=== PATIENT | female | born 1970 | race Caucasian/White ===

== ENCOUNTER 2019-10-05 02:15 | Emergency (ER) | payer OTHER ==
[~2019-10-05] VITALS: Ht 157.5 cm; Wt 54.4 kg
[2019-10-05 03:10] VITALS: BP 126/74
[2019-10-05 03:46] LABS: INFLUENZA A PATIENT NEGATIVE (NEGATIVE); INFLUENZA B PATIENT NEGATIVE (NEGATIVE)
[2019-10-05] MEDS ORDERED: AMOX500C PO (04:01)
--- NOTE | 2019-10-05 04:02 | PHYS DOC ---
Past Medical History Past Medical History: No Pertinent History Past Surgical History: No Surgical History Alcohol Use: Occasionally Drug Use: None Adult General Chief Complaint Chief Complaint: MULTIPLE COMPLAINTS HPI HPI Patient is a 49-year-old female who presents with complaint of sore throat, dry cough, fever and chills for the last few days. Patient states that her temperature has been a cyanosis 104 at home. She states that temperature has been managed with ibuprofen and Tylenol. She states that cough has not been productive of sputum. She indicates that nothing is improving her symptoms.[] Review of Systems Review of Systems Constitutional: Positive fever and chills [] HENT: Complains of congestion and sore throat [] Respiratory: Complains of cough and shortness of breath [] Cardiovascular: No additional information not addressed in HPI [] GI: Denies abdominal pain, nausea, vomiting or diarrhea [] Integument: Denies rash or skin lesions [] Neurologic: Denies headache, focal weakness or sensory changes [] All other systems were reviewed and found to be within normal limits, except as documented in this note. Allergies Allergies Allergies Coded Allergies Type Severity Reaction Last Updated Verified No Known Drug Allergies 03/02/15 No Physical Exam Physical Exam Constitutional: Well developed, well nourished, no acute distress, non-toxic appearance. [] HENT: Normocephalic, atraumatic, bilateral external ears normal, with pharyngeal erythema. [] Neck: Normal range of motion, no tenderness, supple, no stridor. [] Cardiovascular: Regular rate and rhythm[] Lungs & Thorax: Bilateral breath sounds clear to auscultation [] Abdomen: Bowel sounds normal, soft, no tenderness. [] Skin: Warm, dry, no erythema, no rash. [] Extremities: No tenderness, no cyanosis, no clubbing, ROM intact, no edema. [] Neurologic: Alert and oriented X 3, no focal deficits noted. [] Current Patient Data Vital Signs Vital Signs Date Time Temp Pulse Resp B/P (MAP) Pulse Ox O2 Delivery O2 Flow Rate FiO2 10/05/19 03:10 98.2 66 12 126/74 (91) 98 Room Air 98.2 Lab Values Laboratory Tests Test 10/05/19 03:20 Influenza Type A Antigen Negative (NEGATIVE) Influenza Type B Antigen Negative (NEGATIVE) EKG EKG [] Radiology/Procedures Radiology/Procedures [] Course & Med Decision Making Course & Med Decision Making Pertinent Labs and Imaging studies reviewed. (See chart for details) [] Dragon Disclaimer Dragon Disclaimer This electronic medical record was generated, in whole or in part, using a voice recognition dictation system. Departure Departure Impression: Primary Impression: Pharyngitis Disposition: HOME, SELF-CARE Condition: STABLE Referrals: UNKNOWN PCP NAME (PCP) Patient Instructions: Viral and Bacterial Pharyngitis Scripts Amoxicillin (AMOXICILLIN) 500 Mg Capsule 1 CAP PO TID, #30 CAP Prov: RUSTAM STRICKLAND Jr. DO 10/05/19 Problem Qualifiers Primary Impression: Pharyngitis Pharyngitis/tonsillitis etiology: unspecified etiology Qualified Codes: J02.9 - Acute pharyngitis, unspecified RUSTAM STRICKLAND Jr. DO Oct 05, 2019 04:02
== END 2019-10-05 04:30 | disposition home or self-care (01) ==
LOC: ER 02:15
DX: J02.9 Acute pharyngitis, unspecified (principal)
CPT/HCPCS: 87070; 87804; 87880; 99284

== ENCOUNTER → 2020-04-22 | Outpatient (CLI) | payer OTHER ==
[~2020-04-22] MED LIST: AMOX500C PO
--- NOTE | 2020-04-23 07:52 | CARD ---
MR#: [id number] Date of Study: 04/22/2020 Ordering Physician: DAREN PRUETT, Referring Physician: DAREN PRUETT, Tech: Lisbeth Issa APPROVED REPORT EXAM: Two-dimensional and M-mode echocardiogram with Doppler and color Doppler. Other Information Quality : GoodHR: 57bpm INDICATION Murmur 2D DIMENSIONS RVDd3.6 (2.9-3.5cm)Left Atrium(2D)3.5 (1.6-4.0cm) IVSd0.9 (0.7-1.1cm)Aortic Root(2D)2.7 (2.0-3.7cm) LVDd4.4 (3.9-5.9cm)LVOT Diameter2.0 (1.8-2.4cm) PWd1.0 (0.7-1.1cm)LVDs2.9 (2.5-4.0cm) FS (%) 34.6 %SV55.7 ml LVEF(%)63.9 (>50%) Aortic Valve AoV Peak Saqib.115.1cm/sAoV VTI27.1cm AO Peak GR.5.3mmHgLVOT Peak Saqib.114.2cm/s LVOT VTI 23.42cmAO Mean GR.3mmHg JOCELYN (VMAX)2.84wj1EIG (VTI)2.59cm2 Mitral Valve MV E Qiuqjmyc76.4cm/sMV E Peak Gr.124mmHg MV DECEL [id number] A Hlxvtknw00.2cm/s MV E Mean Gr.1mmHgMV MQU81nf E/A Ratio1.4MVA (PHT)4.47cm2 TDI E/Lateral E'5.8E/Medial E'9.6 Pulmonary Valve PV Peak Ylfavuqe35.6cm/sPV Peak Grad.3mmHg Tricuspid Valve TR P. Wkdvcbqi580ah/sRAP SIPYGPPM7hkQb TR Peak Gr.60wuHkRVWQ75ghNw Pulmonary Vein S1 Hrtzloel44.4cm/sD2 Tsogagdv68.4cm/s LEFT VENTRICLE The left ventricle is normal size. There is normal left ventricular wall thickness. The left ventricu lar systolic function is normal and the ejection fraction is within normal range. The Ejection Fracti on is 55-60%. There is normal LV segmental wall motion. Transmitral Doppler flow pattern is Grade II- pseudonormal filling dynamics. RIGHT VENTRICLE The right ventricle is normal size. There is normal right ventricular wall thickness. The right ventr icular systolic function is normal. ATRIA The left atrium size is normal. The right atrium size is normal. The interatrial septum is intact wit h no evidence for an atrial septal defect or patent foramen ovale as noted on 2-D or Doppler imaging. AORTIC VALVE The aortic valve is normal in structure and function. Doppler and Color Flow revealed no significant aortic regurgitation. There is no significant aortic valvular stenosis. MITRAL VALVE The mitral valve is normal in structure and function. There is no evidence of mitral valve prolapse. There is no mitral valve stenosis. Doppler and Color-flow revealed mild mitral regurgitation. TRICUSPID VALVE The tricuspid valve is normal in structure and function. Doppler and Color Flow revealed mild tricusp id regurgitation with an estimated PAP of 37 mmHg. There is no tricuspid valve stenosis. PULMONIC VALVE The pulmonic valve is not well visualized. Doppler and Color Flow revealed trace pulmonic valvular re gurgitation. There is no pulmonic valvular stenosis. GREAT VESSELS The aortic root is normal in size. The IVC is normal in size and collapses >50% with inspiration. PERICARDIAL EFFUSION There is no evidence of significant pericardial effusion. Critical Notification Critical Value: No <Conclusion> The left ventricular systolic function is normal and the ejection fraction is within normal range. Th e Ejection Fraction is 55-60%. There is normal LV segmental wall motion. Doppler and Color Flow revealed mild tricuspid regurgitation with an estimated PAP of 37 mmHg. Signed by : Samuel Cruz, Electronically Approved : 04/23/2020 07:52:05
== END | disposition home or self-care (01) ==
LOC: ECHO 13:41
PROVIDERS: ATTEND Internal Medicine Cardiovascular Disease
DX: I08.8 Other rheumatic multiple valve diseases (principal); R01.1 Cardiac murmur, unspecified
CPT/HCPCS: 93306

== ENCOUNTER → 2020-05-17 | Outpatient (CLI) | payer OTHER ==
[~2020-05-17] MED LIST changes: +REGADENOSON 0.4 MG/5 ML DISP.SYRIN. IV ONE
--- NOTE | 2020-05-17 14:35 | RAD ---
MR#: [id number] Date of Study: 05/17/2020 Ordering Physician: DAREN PRUETT, Referring Physician: NABILA PUTNAM Tech: RT Landen Montiel) (N) APPROVED REPORT Test Type: Pharmacological Stress Nurse/Tech: CORNELIUS PITTMAN Test Indications: CHEST PAIN, PALPITATIONS, A-FIB Cardiac History: A-FIB, , See Electronic Medical Record Medications: See Electronic Medical Record Medical History: See Electronic Medical Record Resting ECG: SB W/ PROLONGED QT INTERVAL NOTED Resting Heart Rate: 50 bpm Resting Blood Pressure: 98/64mmHg Pretest Chest Pain: No chest pain Nurse/Tech Notes S1,S2, LUNGS CTA, DENIED CP OR SOA Consent: The procedure was explained to the patient in lay terms. Informed consent was witnessed. Thad eout was entered into Contracts and Grants. History and Stress Test performed by RT Kolby MontielR) (N) Pharm. Details Pharmacologic stress testing was performed using 0.4mg per 5ml of regadenoson given intravenously ove r 7-10 seconds. There waswas no low-level exercise performed along with the infusion Stress Symptoms PT C/O "WEIRD FEELING" DURING STRESS, DIDN'T DESCRIBE IT HAS PAIN, IT SUBSIDED AFTER A COUPLE OF DOUG FANNY. POST EXERCISE Reason for Termination: Infusion complete Max HR: 85 bpm Max Blood Pressure: 114/56mmHg Blood Pressure response to exercise: Normal blood pressure response during stress. Heart Rate response to exercise: nORMAL HEART RATE RESPONSE DURING STRESS Chest Pain: No. Arrhythmia: No. PROLONGED QT INTERVAL NOTED ST Change: No. INTERPRETATION Stress EKG Conclusion: No evidence of stress induced ischemic changes noted Imaging Protocol IMAGE PROTOCOL: Rest Tc-99m/stress Tc-99m 1 day Rest: Stress: Viability: Radiopharm.Tc99m LwblosgfrVa45t Sestamibi Dose10.6mCi 31.8mCi Duration 15min. 10min. Img Date 05/17/2020 05/17/2020 Inj-Img Qpeo68tpb. 60min. Rest Admin Site:IV - Left AntecubitalAdministrator:Tania Wolff, RT (R)(N) Stress Admin Site: IV - Left AntecubitalAdministrator: RT Tiana (R)(N) STRESS DATA End Diast. Vol.98.0mlAv. Heart Rate52.0bpm End Syst. Vol.25.0mlCO Index BSA0.0L/min Myocardial Hejd694.0gEject. Qnswjykz16.0% Stress Rates Pk. Fill Rate2.57EDV/secLVtime Pk. Fill 156.06msec Pk. Empty Rate3.01ESV/secLVtime Pk. Njuzt607.22msec 11/27 Pk. Fill1.81EDV/sec Stress Scores Regional WT0.00Summed WT0.00 Regional WM0.00Summed WM0.00 LV Perfusion There is a mild FIXED anterior wall defect suggestive of breast attenuation rather than prior infarct . Wall Motion Normal EF at 70% LV Perf. Quant 17 Seg. SSS0.00 17 Seg. SRS1.00 17 Seg. SDS0.00 Stress Defect Extent (% LAD)0.00Rest Defect Extent (% LAD)0.00Rev. Defect Extent (% LAD)0.00 Stress Defect Extent (% LCX) 0.00Rest Defect Extent (% LCX)0.00Rev. Defect Extent (% LCX)0.00 Stress Defect Extent (% RCA)0.00Rest Defect Extent (% RCA)0.00Rev. Defect Extent (% RCA)0.00 Stress Defect Extent (% MOSHE)0.00Rest Defect Extent (% MOSHE)0.00Rev. Defect Extent (% MOSHE)0.00 Other Information Quality:Average Risk Assessment: Low Risk Conclusion 1. No evidence of stress induced EKG changes. Abnormal baseline EKG with mild QT prolongation 2. Normal perfusion at stress/rest. 3. Probable anterior breast attenuation artifact noted 4. Normal EF at > 70% 5. Low risk study Signed by : Samuel Cruz, Electronically Approved : 05/17/2020 14:34:52
== END | disposition home or self-care (01) ==
LOC: NM 09:51
PROVIDERS: ATTEND Internal Medicine Cardiovascular Disease
DX: R07.9 Chest pain, unspecified (principal); I48.91 Unspecified atrial fibrillation
CPT/HCPCS: 78452; 93017; A9500; J2785

== ENCOUNTER → 2020-08-17 | Outpatient (CLI) | payer OTHER ==
[~2020-08-17] MED LIST changes: -REGADENOSON 0.4 MG/5 ML DISP.SYRIN. IV ONE
--- NOTE | 2020-08-17 14:37 | KCIC ---
EXAMINATION: KNEE RIGHT 3V CLINICAL HISTORY: Reason: PAIN / Spl. Instructions: Medial right knee pain, prior hx as a child to right knee. / History: TECHNIQUE: KNEE RIGHT 3V Number of Images/Views: 3 COMPARISON: None FINDINGS: Mild medial compartment narrowing. Tricompartmental small marginal osteophytes. No acute fracture. Small suprapatellar enthesophyte. No joint effusion. IMPRESSION: Mild degenerative changes right knee, greatest in the medial compartment. Electronically signed by: Luciano Bean DO (08/17/2020 2:34 PM) [id number]
== END | disposition home or self-care (01) ==
LOC: KCIC 13:29
PROVIDERS: ATTEND Nurse Practitioner Family
DX: M17.11 Unilateral primary osteoarthritis, right knee (principal)
CPT/HCPCS: 73562

== ENCOUNTER → 2020-10-24 | Outpatient (CLI) | payer OTHER ==
--- NOTE | 2020-10-24 11:38 | KCIC ---
EXAMINATION: MRI RIGHT KNEE WITHOUT IV CONTRAST CLINICAL HISTORY: Right knee pain. Pt states knee surgery as a child to correct deformity. / History: Popping and pain, instability, positive Laina. Chronic pain since a child TECHNIQUE: Multiplanar multisequential images obtained through the knee without intravenous contrast. COMPARISON: Radiographs 09/26/2020 and 08/17/2020 FINDINGS: MENISCI: Medial Meniscus: Intact. Lateral Meniscus: Intact. LIGAMENTS: ACL: Intact PCL: Intact MCL: Intact LCL Complex: Intact CARTILAGE: Medial Femoral Condyle: Moderate sized area(s) of full thickness cartilage loss and or fissuring with subchondral marrow reactive/cystic changes in the anterior weightbearing portion of the condyle with extension into the trochlea Medial Tibial Plateau: Small area(s) of full thickness cartilage loss and or fissuring with subchondral marrow reactive/cystic changes anteriorly Lateral Femoral Condyle: Large area(s) of high grade (greater than 50% thickness) partial thickness cartilage loss and or fissuring Lateral Tibial Plateau: Normal Patella: Moderate sized area(s) of predominantly high grade (greater than 50% thickness) cartilage loss and or fissuring with smaller area(s) of full thickness cartilage loss and or fissuring with subchondral marrow reactive/cystic changes in the medial facet Trochlea: Moderate sized area(s) of full thickness cartilage loss and or fissuring with subchondral marrow reactive/cystic changes in the medial trochlea with extension into the medial femoral condyle TENDONS: The distal quadriceps and patellar tendons are intact. The popliteus tendon is intact. BONES AND MARROW: No evidence of acute fracture or suspicious marrow replacing process. MUSCLES: Muscle bulk and signal intensity within normal limits. JOINT FLUID AND SYNOVIUM: Small joint effusion. No synovitis. No Milton's cyst. IMPRESSION: Moderate full-thickness chondral wear in the medial and patellofemoral compartments as described. No discrete meniscus tear. Electronically signed by: Luciano Bean DO (10/24/2020 11:34 AM) [id number]
== END ==
LOC: KCIC MRI 09:42
PROVIDERS: ATTEND Orthopaedic Surgery
DX: M25.461 Effusion, right knee (principal)
CPT/HCPCS: 73721

== ENCOUNTER → 2021-12-13 | Outpatient (CLI) | payer OTHER ==
[~2021-12-13] MED LIST changes: +ESCITALOPRAM OXA5 MG PO
[2021-12-13 10:01] LABS: ALBUMIN 3.5 g/dL (3.4-5.0); ALBUMIN/GLOBULIN RATIO 0.9 (1.0-1.7); CALCIUM 8.2 mg/dL (8.5-10.1); CREATININE 0.9 mg/dL (0.6-1.0); GFR 66.5; POTASSIUM 4.7 mmol/L (3.5-5.1); TOTAL BILIRUBIN 0.2 mg/dL (0.2-1.0); TOTAL PROTEIN 7.6 g/dL (6.4-8.2)
== END ==
LOC: LAB 09:07
PROVIDERS: ATTEND Anesthesiology Pain Medicine
DX: Z02.71 Encounter for disability determination (principal); N28.9 Disorder of kidney and ureter, unspecified
CPT/HCPCS: 36415; 80053